=== PATIENT | male | born 1950 | race Two or more races ===

== ENCOUNTER → 2017-04-24 | Outpatient (CLI) | payer BC ==
--- NOTE | 2017-05-13 23:41 | ECWPNPC ---
PATIENT NAME: YOLANDA MONSIVAIS : 1950 GENDER: MALE VISIT DATE: 04/24/2017 DISCHARGE DATE: 04/24/17 1444 VISIT LOCKED DATE TIME: PHYSICIAN: OSIEL GONZALEZ RESOURCE: OSIEL GONZALEZ REASON FOR APPOINTMENT 1. RIGHT KNEE HISTORY OF PRESENT ILLNESS FALL RISK SCREENING: SCREENING :NO FALLS IN THE PAST YEAR PAIN SCREENING: PATIENT HAS A COMPLAINT OF ACUTE OR CHRONIC PAIN :YES TODAY'S VISIT: NOTES: REFERRED BY KARINE MARAVILLA NP AT [facility] FOR FURTHER EVAL AND TREATMENT FOR RIGHT KNEE PAIN. HAS HAD YEARS OF RIGHT KNEE PAIN. SAW DR MIRANDA AND SOS FOR A SECOND OPINION. HAS HAD NO SURGICAL INTERVENTION TO THE KNEE. NOTES PAIN US PRESENT WHEN STANDING AND WALKING AND RELIEVED BY SITTING DOWN. HE HAS HAD INJECTIONS TO THE RIGHT KNEE, TYPE UNKNOWN. REPORTS SOME CONTINUED DISCOMFORT BUT HAS SEEN SOME IMPROVEMENT IN KNEE PAIN. HAS HAD NO REPORTED PHYSICAL THERAPY TO KNEES. RATES PAIN TODAY 5/10 OVER THE RIGHT PATELLA. PAIN IS AGGRAVATED BY STANDING AND WALKING. NOTES SOME SWELLING AND HEAT AT THE KNEE AREA. . CURRENT MEDICATIONS TAKING OMEPRAZOLE 20 MG CAPSULE DELAYED RELEASE 1 CAPSULE ORALLY ONCE A DAY TAKING MAG64 535 (64 MG) MG TABLET EXTENDED RELEASE 1 TABLET ORALLY TWICE A DAY TAKING LISINOPRIL-HYDROCHLOROTHIAZIDE 20-12.5 MG TABLET 1 TABLET ORALLY ONCE A DAY TAKING AMLODIPINE BESYLATE 5 MG TABLET 1 TABLET ORALLY ONCE A DAY TAKING CALCIPOTRIENE-BETAMETH DIPROP 0.005-0.064 % OINTMENT 1 APPLICATION TO AFFECTED AREA EXTERNALLY ONCE A DAY NOT-TAKING TRAMADOL HCL 50 MG TABLET 1 TABLET NEEDED ORALLY EVERY 6 HRS, NOTES: DIDN'T WORK MEDICATION LIST REVIEWED AND RECONCILED WITH THE PATIENT PAST MEDICAL HISTORY HTN ALLERGIES N.K.D.A. SURGICAL HISTORY CHOLECYSTECTOMY COLONOSCOPY, EGD 2011 FAMILY HISTORY FATHER: 57 YRS, DIAGNOSED WITH CANCER MOTHER: 71 YRS, DIAGNOSED WITH CANCER 1 SON(S) , 1 DAUGHTER(S) - HEALTHY. SOCIAL HISTORY GENERAL: TOBACCO USE ARE YOU A:NONSMOKER ALCOHOL SCREENING POINTS9 INTERPRETATIONPOSITIVE RECREATIONAL DRUG USE DRUG USE?NO CAFFEINE CAFFEINE USE?NO OCCUPATION: [employer], [employer] AND [employer]. DIET: REGULAR. EXERCISE: NO REGULAR EXERCISE. MARITAL STATUS: . OTHERS AT HOME: NONE. PETS: 1 CAT. SCIENTOLOGIST [id number] NONE LANGUAGE LANGUAGES SPOKEN:SIERRA LEONEAN EDUCATION LEVEL OF EDUCATION:NOT FINISHED COLLEGE LEARNING BARRIERS / SPECIAL NEEDS BARRIERS TO LEARNING?NO HEARING IMPAIRED?NO VISION IMPAIRED?YES :CORRECTIVE LENSES COGNITIVELY IMPAIRED?NO READINESS TO LEARN?YES LEARNING PREFERENCES?YES :TAPES/VIDEOS, DEMONSTRATION/VERBAL INSTRUCTION LEARNING CAPABILITIES PRESENT?YES EMOTIONAL BARRIERS?NO SPECIAL DEVICES?NO MOLD MOVER NEEDED?NO PAIN CLINIC PFS, CLERGY, PUBLIC HEALTH REFERRALS PFS REFERRAL NEEDED?NO CLERGY REFERRAL NEEDED?NO PUBLIC HEALTH REFERRAL NEEDED?NO ADVANCE DIRECTIVES HEALTH CARE PROXY?NO WOULD YOU LIKE MORE INFORMATION?NO DO YOU HAVE A DNR?NO WOULD YOU LIKE MORE INFORMATION?NO LIVING WILL?NO WOULD YOU LIKE MORE INFORMATION?NO POWER OF BEAD FORMING MACHINE SET UP OPERATOR?NO WOULD YOU LIKE MORE INFORMATION?NO SOCIAL HISTORY PATIENTDENIES RECREATIONAL DRUG USE NO DOMESTIC VIOLENCE . PLAN CARE FOR THE PAIN CENTER REVIEWED WITH PATIENT AND HE VERBALIZED UNDERSTANDING. AD. HOSPITALIZATION/MAJOR DIAGNOSTIC PROCEDURE DENIES PAST HOSPITALIZATION REVIEW OF SYSTEMS CONSTITUTIONAL: ANY CHANGE IN YOUR MEDICAL CONDITION? NO . CHILLS NO . FEVER NO . INFECTION: DO YOU HAVE NEW INFECTIONS? NO . DO YOU HAVE HISTORY OF MRSA? NO . MUSCULOSKELETAL: ANY NEW PATTERNS OF PAIN OR NUMBNESS? NO . SYTEMIC LUPUS NO . GASTROENTEROLOGY: ANY NEW CHANGE IN BOWEL CONTROL? NO . BARRETTS ESOPHAGUS NO . CIRRHOSIS NO . HEPATITIS NO . LIVER FAILURE NO . ACID REFLUX YES . UNEXPLAINED WEIGHT LOSS NO . GENITOURINARY: ANY NEW CHANGE IN BLADDER CONTROL? NO . IS THERE A CHANCE YOU COULD BE ? NO . HEMATOLOGY/LYMPH: DO YOU TAKE ANY BLOOD THINNERS? (FOR EXAMPLE- COUMADIN, PLAVIX, AGGRENOX, PLATEL, PRADAXA, OR XARELTO) NO . WHEN WAS YOUR LAST DOSE? DATE: TIME: . LOW PLATELET COUNT NO . SICKLE CELL DISEASE NO . VON WILLIEBRANDS NO . FACTOR V LEIDEN NO . THALLASEMIA NO . ANEMIA NO . EASY BRUISING NO . NEUROLOGY: HAVE YOU FALLEN IN THE PAST 6 MONTHS? NO . ANY NEW EXTREMITY NUMBNESS OR WEAKNESS? NO . HEAD INJURY NO . DEMENTIA NO . CEREBRAL PALSY NO . MULTIPLE SCLEROSIS NO . DIZZINESS NO . HEADACHE NO . STROKES NO . VERTIGO NO . CARDIOLOGY: DO YOU HAVE A PACEMAKER OR DEFIBRILLATOR? NO . ANGINA NO . HEART ATTACK NO . HEART SURGERY NO . CONGESTIVE HEART FAILURE/FLUID OVERLOAD NO . CHEST PAIN NO - HAD WORK UP FOR CHEST PAIN - FOUND TO BE GI RELATED . HIGH BLOOD PRESSURE ON MEDICATION(S) . IRREGULAR HEART BEAT NO . RESPIRATORY: HAVE YOU BEEN SICK IN THE PAST WEEK? NO . FEVER NO . FLU LIKE SYMPTOMS? NO . CPAP NO . BYPAP NO . ASTHMA NO . EMPHYSEMA NO . CHRONIC LUNG DISEASES NO . SHORTNESS OF BREATH ON EXERTION NO . COUGH NO . SNORING YES, NEVER TESTED FOR ADRIAN . INTEGUMENTARY: DO YOU HAVE ANY RASHES OR OPEN SORES? NO . ALLERGIC/IMMUNO: ARE YOU ALLERGIC TO SHELLFISH OR IV DYE? NO . ANY NEW ALLERGIES? NO . PSYCHIATRIC: DO YOU HAVE THOUGHTS OF HURTING YOURSELF OR SOMEONE ELSE? NO . ARE YOU ABUSED, NEGLECTED, OR IN AN UNSAFE ENVIRONMENT? NO . ENDOCRINOLOGY: ARE YOU DIABETIC? NO . THYROID DISORDER NO . OTHER: DO YOU NEED ANY PRESCRIPTIONS? NO . IF YES, PLEASE LIST: ____ . ANY NEW PROBLEMS WITH YOUR MEDICATIONS? NO . WHEN DID YOU LAST EAT? ____ . WHEN DID YOU LAST DRINK? ____ . WHAT DID YOU LAST DRINK? ____ . NAME OF PERSON DRIVING YOU HOME? ____ . DO YOU HAVE ANY OTHER QUESTIONS OR CONCERNS YES, PAIN RELIEF . PSYCHOLOGY: BECKS DEPRESSION INVENTORY 0/63 DENIES SUICIDAL OR HOMICIDAL IDEATION . REVIEWED BY: PROVIDER: OSIEL FONSECA . VITAL SIGNS WT 211.6 LBS, HT 70", BMI 30.36 INDEX, BP 147/87 MM HG, HR 62 /MIN, RR 16 /MIN, TEMP 98.2 F, OXYGEN SAT % 98%, NA INITIALS TL 1333, REVIEWED BY: AD. EXAMINATION GENERAL EXAMINATION: PSYCHALERT , ORIENTED X 3 , APPROPRIATE MOOD AND AFFECT . HEENT:NORMOCEPHALIC, NO LYMPHADENOPATHY, NO THYROMEGLY. LUNGS:CLEAR TO AUSCULTATION BILATERALLY, NO WHEEZES, RALES, RHONCHI. HEART:HEART RATE REGULAR, NORMAL S1S2, NO MURMURS, CLICK OR RUBS. MUSCULOSKELETAL:MUSCLE STRENGTH TESTING 5/5 BILATERAL UPPER/LOWER EXTREMITIES. POSTURE UPRIGHT. GAIT ANTALGIC WITH RIGHT LEG LIMP NOTED. MINIMAL TENDERNESS WITH PALPATION OVER LUMBAR SPINOUS PROCESSES AND SACRALILIAC JOINTS. ABLE TO FLEX AND EXTEND AT ANKLE WITHOUT DIFFICULTY. POINT TENDERNESS OVER RIGHT TROCANTER. POSITIVE LAYA SIGN.. JOINTS:RIGHT , KNEE TENDER TO TOCH OVER PATELLA AND IN POPLITEAL SPACE. NO MASSES APPRECIATED. CREPITUS WITH EXTENSION AT KNEE. . DIAGNOSTIC TESTS REVIEWEDMRI OF RIGHT KNEE COMPLETED 02/16/17 REVIEWED.. ASSESSMENTS RIGHT ANTERIOR KNEE PAIN - M25.561 (PRIMARY) HIP PAIN, RIGHT - M25.551 TREATMENT RIGHT ANTERIOR KNEE PAIN NOTES: ICE TO KNEE AND HIP AREA. PHYSICAL THERAPY IN FUTURE IF NEEDED.FOLLOW UP WITH ORTHOPEDICS IN [place] NEEDED. PROCEDURE CODES FA211 ESTABILISHED PATIENT [facility] CHARGE DISPOSITION & COMMUNICATION FOLLOW UP CALL IF APPOINTMENT NEEDED. ELECTRONICALLY SIGNED BY JAYSON TOMAS ON 05/13/2017 AT 01:52 PM EDT DISCLAIMER : THIS IS A VISIT SUMMARY EXTRACTED FROM THE [employer] CHART. IT IS NOT A COPY OF THE [employer] PROGRESS NOTE. SPRING
== END ==
LOC: M PAIN 13:20
PROVIDERS: ATTEND Nurse Practitioner Family
DX: G89.29 Other chronic pain (principal); M25.561 Pain in right knee; M25.551 Pain in right hip; I10 Essential (primary) hypertension; K21.9 Gastro-esophageal reflux disease without esophagitis; Z79.899 Other long term (current) drug therapy

== ENCOUNTER 2017-07-18 21:27 | Observation (INO) | payer BC ==
[~2017-07-18] VITALS: Ht 185.4 cm; Wt 95.4 kg
[~2017-07-18 21:27] MED LIST: TAMSULOSIN 0.4 MG CAP PO SCH
[2017-07-18] MEDS ORDERED: NS 1,000 ML IV ONE (22:45)
[2017-07-18] MEDS ORDERED: ONDANSETRON 4MG/2ML VIAL (J2405) IV ONE (22:45)
[2017-07-18 22:47] LABS: BASO # 0.1 K/mm3 (0.0-0.2); BASO % 0.4 % (0.0-1.0); EOS # 0.2 K/mm3 (0.0-0.50); EOS % 0.9 % (0.0-3.0); LARGE UNSTAINED CELL # 0.1 K/mm3 (0.0-0.4); LARGE UNSTAINED CELL % 0.7 % (0.0-4.0); LYMPH # 1.2 K/mm3 (1.5-4.5); MEAN CORPUSCULAR HEMOGLOBIN 32.1 pg (27.0-33.0); MEAN CORPUSCULAR HGB CONC 34.6 g/dl (32.0-36.5); MEAN CORPUSCULAR VOLUME 92.9 fl (80.0-96.0); MONO % 5.5 % (0.0-5.0); NEUTROPHILS # 15.3 K/mm3 (1.8-7.7); NEUTROPHILS % 86.6 % (36.0-66.0); PLATELET COUNT, AUTOMATED 296 k/mm3 (150-450); RED CELL DISTRIBUTION WIDTH 12.7 % (11.5-14.5); WHITE BLOOD COUNT 17.7 K/mm3 (4.0-10.0)
[2017-07-18] MEDS: MORPHINE 4 MG/ML 1ML SYRINGE IV PRN ×2 (22:50→23:12)
[2017-07-18 23:02] LABS: ALBUMIN 4.2 GM/DL (3.2-5.2); ALKALINE PHOSPHATASE 63 U/L (45-117); ALT/SGPT 23 U/L (12-78); ANION GAP 11 MEQ/L (8-16); AST/SGOT 13 U/L (15-37); BILIRUBIN,DIRECT 0.1 MG/DL (0.0-0.2); BILIRUBIN,TOTAL 0.6 MG/DL (0.2-1.0); BLOOD UREA NITROGEN 15 MG/DL (7-18); CALCIUM LEVEL 8.7 MG/DL (8.8-10.2); CARBON DIOXIDE LEVEL 23 MEQ/L (21-32); CHLORIDE LEVEL 103 MEQ/L (98-107); CREATININE FOR GFR 1.29 MG/DL (0.70-1.30); GLOMERULAR FILTRATION RATE 59.1 (>49); GLUCOSE, FASTING 110 MG/DL (80-110); POTASSIUM SERUM 3.6 MEQ/L (3.5-5.1); SODIUM LEVEL 137 MEQ/L (136-145); TOTAL PROTEIN 7.7 GM/DL (6.4-8.2)
[2017-07-18] MEDS ORDERED: KETOROLAC 30 MG/ML VIAL (J1885) IV ONE (23:45)
[2017-07-19] VITALS (7 sets, daily range): BP systolic 142–180; BP diastolic 72–87
--- NOTE | 2017-07-19 | REPUSA ---
CT of the abdomen and pelvis without contrast Clinical statement: Pain. Technique: Multiple axial CT images were obtained from the base of the lungs to the floor of the pelv is utilizing 5 mm axial slices without administration of contrast. Coronal and sagittal reconstructio ns were also obtained. Comparison: 05/03/2012. Findings: Chest: The visualized lung bases are clear. Abdomen: The kidneys are normal in size bilaterally. There is moderately severe inflammation around t he left kidney. There is moderate left-sided hydronephrosis caused by a 6 mm obstructing stone in the proximal left ureter. The right renal collecting system is unremarkable. There is a low attenuation lesion in the left adrenal gland, measuring 2.1 x 1.7 cm. The liver, spleen, pancreas, and right adre nal gland are unremarkable. The aorta demonstrates normal caliber and contour. There is no abdominal lymphadenopathy or ascites. Pelvis: The bowel is unremarkable, with no obstructive or inflammatory changes. The appendix is rizwan l. The urinary bladder is within normal limits. There is no pelvic lymphadenopathy or ascites. The ot her pelvic structures appear unremarkable. Bones: There are no suspicious osseous abnormalities seen. Multilevel degenerative disc disease is no rishi, most severe at L2/L3 and L4/L5. Small disc osteophyte complexes are seen at these levels. Bilate ral osteoarthritis of the hip joints is noted, worse on the right than the left. Impression: 1. Moderately severe left-sided hydronephrosis caused by 6 mm obstructing stone in the proximal left ureter. Surrounding inflammation is noted, which could represent pyelonephritis in the appropriate cl inical setting. Follow-up is suggested as clinically indicated. 2. Stable benign left adrenal adenoma. 3. No obstructive or inflammatory bowel changes. 4. Moderate spondylosis of multilevel degenerative disc disease of the lumbar spine. 5. Moderately severe osteoarthritis of the hip joints bilaterally.
[2017-07-19] MEDS ORDERED: TAMSULOSIN 0.4 MG CAP PO ONE (00:15)
[2017-07-19] MEDS ORDERED: CIPROFLOXACIN 400 MG in APPROPRIATE DILUENT 1 EA IV ONE (00:15)
[2017-07-19] MEDS ORDERED: CALC0.02 EXT (00:50)
[2017-07-19] MEDS ORDERED: LISI20TA PO (00:50)
[2017-07-19] MEDS ORDERED: AMLO5TAB2 PO (00:50)
[2017-07-19] MEDS ORDERED: OMEP20CA3 PO (00:50)
[2017-07-19] MEDS ORDERED: ACETAMINOPHEN TAB 650MG DOSE (2X325MG) PO PRN (01:00)
[2017-07-19] MEDS ORDERED: CIPROFLOXACIN 400 MG in APPROPRIATE DILUENT 1 EA IV SCH ×2 (01:00→13:00)
[2017-07-19] MEDS ORDERED: MORPHINE 2 MG/ML 1ML SYRINGE IV PRN ×2 (01:00→20:00)
[2017-07-19] MEDS ORDERED: PERCOCET 5MG/325MG TAB PO PRN ×2 (01:00→20:00)
[2017-07-19] MEDS ORDERED: ONDANSETRON 4MG/2ML VIAL (J2405) IV PRN (01:00)
[2017-07-19] MEDS ORDERED: KETOROLAC TROMETHAMINE 10 MG TAB PO PRN (01:00)
[2017-07-19] MEDS ORDERED: OMEPRAZOLE 20 MG CAP PO PRN (01:00)
[2017-07-19 01:29] LABS: URIC ACID 6.1 MG/DL (3.5-7.2)
[2017-07-19] MEDS: NS 1,000 ML IV SCH ×2 (02:38→12:37)
[2017-07-19] MEDS: PERCOCET 5MG/325MG TAB PO PRN ×3 (05:15→16:52)
[2017-07-19] MEDS ORDERED: LevoFLOXacin IV 500 MG in APPROPRIATE DILUENT 1 EA IV SCH (06:00)
[2017-07-19 06:39] LABS: MEAN CORPUSCULAR HEMOGLOBIN 32.1 pg (27.0-33.0); MEAN CORPUSCULAR HGB CONC 35.6 g/dl (32.0-36.5); MEAN CORPUSCULAR VOLUME 90.3 fl (80.0-96.0); RED CELL DISTRIBUTION WIDTH 12.8 % (11.5-14.5); WHITE BLOOD COUNT 11.6 K/mm3 (4.0-10.0)
[2017-07-19 06:44] LABS: INR 0.93
[2017-07-19 06:57] LABS: CALCIUM LEVEL 8.1 MG/DL (8.8-10.2); CREATININE FOR GFR 1.53 MG/DL (0.70-1.30); GLOMERULAR FILTRATION RATE 48.6 (>49); POTASSIUM SERUM 3.8 MEQ/L (3.5-5.1)
--- NOTE | 2017-07-19 07:24 | ECGEPIP ---
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
[2017-07-19] MEDS ORDERED: hydroCHLOROthiazide 12.5 MG CAPSULE PO SCH (09:00)
[2017-07-19] MEDS: amLODIPine 5 MG TAB PO SCH (09:26)
[2017-07-19] MEDS: ENOXAPARIN 40 MG/0.4 ML SYRINGE (J1650) SC SCH (09:26)
[2017-07-19] MEDS ORDERED: ceFAZolin 1GM INJ (J0690) As Ordered ONE (17:19)
[2017-07-19] MEDS ORDERED: CONRAY-60 60% 50ML VIAL (Q9961) As Ordered ONE (17:23)
[2017-07-19] MEDS ORDERED: MIDAZOLAM INJ 2 MG/2 ML VIAL (J2250) As Ordered ONE (17:41)
[2017-07-19] MEDS ORDERED: fentaNYL 100 MCG/2 ML INJECTION (J3010) As Ordered ONE (17:41)
[2017-07-19] MEDS ORDERED: PROPOFOL 200 MG/20 ML VIAL As Ordered ONE (17:50)
[2017-07-19] MEDS ORDERED: ceFAZolin 2 GM/D5W 50 ML IV BAG (J0690) As Ordered ONE (17:59)
[2017-07-19] MEDS ORDERED: LIDOCAINE 2% 5ML JELLY UROJET As Ordered ONE (18:02)
[2017-07-19] MEDS ORDERED: LIDOCAINE 2% INJ 100 MG/5 ML SDV (FOR ANES.) As Ordered ONE (18:23)
--- NOTE | 2017-07-19 18:41 | REP ---
Retrograde ureterogram: Two views. History: Left kidney stone. 11 seconds of fluoroscopy time is reported. Findings: A sequence of two last image hold fluoro spot radiographs of the left abdomen document double pigtail ureteral stent placement and some intrarenal collecting system contrast. Signed by Ke Espinoza MD 07/20/2017 08:34 A
[2017-07-19] MEDS: ONDANSETRON 4MG/2ML VIAL (J2405) IV PRN (20:06)
[2017-07-19] MEDS ORDERED: TAMSULOSIN 0.4 MG CAP PO SCH (21:00)
--- NOTE | 2017-07-19 21:44 | HPE ---
DATE OF ADMISSION: 07/18/2017 PRIMARY CARE PROVIDER: Anai Jurado. CHIEF COMPLAINT: Left-sided flank pain. HISTORY OF PRESENT ILLNESS: The patient is a 67-year-old man who tells me he has a history of left-sided flank pain related to a kidney stone that he had many years ago. He tells that he began having pain early in the morning of 07/18, which progressively worsened. He initially thought it was an upset stomach or possibly even food poisoning, but when it became more intense and more severe likened to how he had stone in the past, and as such he presented to the emergency room. He denies any fever, chills, chest pain, nausea, vomiting or associated diarrhea, changes in his appetite, diet or medications. He states at the present time he is comfortable after receiving pain medication in the emergency room. He tells me that he feels normal. Of note, he tells me that he is due to have hip replacement surgery completed on 08/06 in [place]. PAST MEDICAL HISTORY: 1. Osteoarthritis. 2. Hypertension. 3. Hiatal hernia. 4. Esophageal polyps. 5. Gastroesophageal reflux disease. ALLERGIES: No known drug allergies. PAST SURGICAL HISTORY: 1. Cholecystectomy. 2. Esophagogastroduodenoscopy (EGD) and colonoscopy in 2013. SOCIAL HISTORY: No tobacco use. He drinks 2-3 beers per day. 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 HOME MEDICATIONS: - amlodipine 5 mg daily - omeprazole 20 mg at bedtime as needed for reflux - lisinopril hydrochlorothiazide combination 20/12.5 FAMILY HISTORY: Noncontributory. REVIEW OF SYSTEMS: 10-point review of systems completed, negative other than history of present illness (HPI). OBJECTIVE: VITAL SIGNS: Temperature 98.2, pulse 60, respiratory rate 16, blood pressure 151/83, oxygen saturation 97% on room air. GENERAL: He is a very pleasant man lying on a stretcher. He does not appear to be in any acute distress whatsoever. HEENT: Cranial nerves II through XII grossly intact. He has moist mucous membranes. No elevation of central venous pressure (CVP). CARDIOVASCULAR: S1, S2. Regular. RESPIRATORY: Clear. ABDOMEN: Bowel sounds present. Abdomen is soft. It is nontender to palpation. He did not have any costovertebral angle tenderness on my exam. EXTREMITIES: No clubbing, cyanosis or edema. LABORATORY DATA: WBC 17.7, hemoglobin 16.1, platelet count 296. Chemistry panel: Sodium 137, potassium 3.6, chloride 103, bicarbonate 23, BUN 15 , creatinine 1.2. Cardiac enzymes are negative. Lipase within normal limits. Urinalysis (UA) was positive for 3+ blood and 28 RBCs, as well as trace ketones. A urine culture is pending. IMAGING: The patient did have a CT scan of the abdomen and pelvis which revealed moderate to severe left-sided hydronephrosis caused by a 6 mm obstructing stone in the proximal left ureter; surrounding inflammation is noted which could represent pyelonephritis. Benign left adrenal adenoma. No obstructive or inflammatory bowel changes. Moderate spondylosis, degenerative disc disease of the lumbar spine, and osteoarthritis throughout the hip joints bilaterally. ASSESSMENT AND PLAN: This is a 67-year-old man with hydronephrosis secondary to obstructing nephrolithiasis. 1. Hydronephrosis secondary to obstructing nephrolithiasis. There was some concern that this could be complicated by infection, given some leukocytosis. He is started on empiric antibiotics and I will continue these for now. Should he developed any further evidence of sepsis, would consider consulting urology for ureteral stent placement; however, at this time I suspect he will do well with observation. We will continue with non-steroidal anti-inflammatory drugs (NSAIDs) as needed, Flomax, straining his urine, intravenous (IV) fluids in hopes that he is able to pass the stone. He will be kept comfortable. I will check pathology of stone would be beneficial for determining etiology 2. Hypertension. Will continue with hydrochlorothiazide and his calcium channel jelly with holding parameters, and we will hold his lisinopril for the moment. 3. Gastroesophageal reflux disease. Continue with his omeprazole. 4. Alcohol abuse. He drinks 2-3 beers per day. Would monitor closely for signs or symptoms of delirium tremens. He seems fairly well nourished. Should he exhibit any signs or symptoms of withdrawal, would quickly start thiamine, folate and B12. He does not appear to have any macrocytosis. He does not appear to require to have any as needed benzodiazepines at this time. 5. Osteoarthritis. Continue with NSAID therapy. He is due to have hip replacement surgery early next month in [place]. 6. Deep venous thrombosis (DVT) prophylaxis on Lovenox. DISPOSITION: The patient is admitted to observation status to Dr. Herrera's service on the medical/surgical floor, who will continue following the patient in the morning. SPRING
[2017-07-19] MEDS: CIPROFLOXACIN 500 MG TAB PO SCH (22:17)
[2017-07-19] MEDS: PANTOPRAZOLE 40MG INJ (PROTONIX) (C9113) IV SCH (22:17)
[2017-07-19] MEDS: KCL 20MEQ IN D5/0.45NS 1000ML 1,000 ML IV SCH (22:18)
[2017-07-20 00:30] VITALS: BP 167/70
[2017-07-20] MEDS ORDERED: PERCOCET 5MG/325MG TAB PO PRN (01:00)
[2017-07-20] MEDS: PERCOCET 5MG/325MG TAB PO PRN ×2 (01:12→06:06)
[2017-07-20 04:00] VITALS: BP 143/64
[2017-07-20] MEDS ORDERED: ceFAZolin SOD 1 GM in D5W MINI-BAG PLUS 50 ML IV SCH (06:00)
[2017-07-20] MEDS: CIPROFLOXACIN 500 MG TAB PO SCH (06:06)
[2017-07-20] MEDS: KCL 20MEQ IN D5/0.45NS 1000ML 1,000 ML IV SCH (06:06)
[2017-07-20 06:55] LABS: MEAN CORPUSCULAR HEMOGLOBIN 31.8 pg (27.0-33.0); MEAN CORPUSCULAR HGB CONC 34.9 g/dl (32.0-36.5); MEAN CORPUSCULAR VOLUME 91.1 fl (80.0-96.0); RED CELL DISTRIBUTION WIDTH 12.3 % (11.5-14.5); WHITE BLOOD COUNT 7.8 K/mm3 (4.0-10.0)
[2017-07-20 07:14] LABS: ANION GAP 6 MEQ/L (8-16); BLOOD UREA NITROGEN 12 MG/DL (7-18); CALCIUM LEVEL 8.2 MG/DL (8.8-10.2); CARBON DIOXIDE LEVEL 27 MEQ/L (21-32); CHLORIDE LEVEL 110 MEQ/L (98-107); GLOMERULAR FILTRATION RATE > 60.0 (>49); GLUCOSE, FASTING 134 MG/DL (80-110); POTASSIUM SERUM 3.5 MEQ/L (3.5-5.1); SODIUM LEVEL 143 MEQ/L (136-145)
[2017-07-20] MEDS ORDERED: PREVNAR 13 VACCINE SYRINGE (CPT CODE:90670) IM ONE (09:00)
[2017-07-20] MEDS: ONDANSETRON 4MG/2ML VIAL (J2405) IV PRN (09:25)
[2017-07-20] MEDS: ENOXAPARIN 40 MG/0.4 ML SYRINGE (J1650) SC SCH (11:27)
[2017-07-20 11:28] VITALS: BP 143/64
[2017-07-20] MEDS: amLODIPine 5 MG TAB PO SCH (11:28)
[2017-07-20] MEDS: PANTOPRAZOLE 40MG INJ (PROTONIX) (C9113) IV SCH (11:29)
[2017-07-20 14:00] VITALS: BP 161/80
[2017-07-20] MEDS ORDERED: CIPR-249 PO (15:35)
[2017-07-20] MEDS ORDERED: PERCOCET PO (15:35)
[2017-07-20] MEDS ORDERED: FLOM5CAP PO (15:35)
--- NOTE | 2017-07-20 15:49 | DS.PDOC ---
Discharge Summary General Date of Admission Jul 18, 2017 at 21:28 Date of Discharge 07/20/17 Specialist/Consultants Involve: LINDA STONE MD Discharge Summary PROCEDURES PERFORMED DURING STAY: Left sided cystoscopy and left double-J stent with retrograde pyelogram ADMITTING DIAGNOSES: 1. . Left-sided hydronephrosis 2/2 proximal left ureter obstructing stone DISCHARGE DIAGNOSES: 1. . Obstructive Uropathy, s/p Left sided cystoscopy and left double-J stent with retrograde pyelogram COMPLICATIONS/CHIEF COMPLAINT: Hydronephrosis Due To Obstruction Of Ureter. HISTORY OF PRESENT ILLNESS: . 67-year-old male with past medical history of osteoarthritis, hypertension, hiatal hernia, esophageal polyps, and GERD presented to the ER with a chief complaint of left-sided flank pain. The patient states that the pain has been present for about 24 hours. He likens it to a pain that he had several years ago which was related to a kidney stone. The patient notes that he felt some burning on urination in the left flank area as well as some hesitancy. He described the pain as 8 out of 10 in intensity and sharp in quality. He denied any associated fever, chills, chest pain, hypertension, nausea, vomiting or any diarrhea. In the ER, a CT scan of the abdomen/pelvis revealed moderately severe left- sided hydronephrosis caused by 6 mm obstructing stone in the proximal left ureter. The patient was admitted to the hospitalist service for further evaluation and management. During hospitalization, the patient was started on IV fluid hydration and IV ciprofloxacin. A consult was placed for urology, and the patient subsequently went for a left sided cystoscopy and left double-J stent with retrograde pyelogram. The patient's white blood cell count has normalized, and he has been afebrile here. He reports that his symptoms have improved and that his pain is much better controlled. He denies any acute complaints at this time and reports that he is eager to go home. The patient was seen by urology today and is to follow-up in 2 weeks for further management. I've advised the patient to follow- up with his primary care physician within one week. In addition the patient is to complete his course of antibiotics. He has been consulted to return to the ER for any acute emergency. DISCHARGE MEDICATIONS: Please see below. ALLERGIES: Please see below. PHYSICAL EXAMINATION ON DISCHARGE: VITAL SIGNS: Please see below. GENERAL: Awake, alert, oriented 3 HEENT: Normocephalic, atraumatic NECK: No JVD CARDIOVASCULAR EXAMINATION: Normal rate, normal S1, S2 RESPIRATORY EXAMINATION: Clear to auscultation bilaterally ABDOMINAL EXAMINATION: Soft, nontender, nondistended EXTREMITIES: No swelling or tenderness LABORATORY DATA: Please see below. IMAGING: CT of the abdomen and pelvis without contrast Clinical statement: Pain. Technique: Multiple axial CT images were obtained from the base of the lungs to the floor of the pelvis utilizing 5 mm axial slices without administration of contrast. Coronal and sagittal reconstructions were also obtained. Comparison: 05/03/2012. Findings: Chest: The visualized lung bases are clear. Abdomen: The kidneys are normal in size bilaterally. There is moderately severe inflammation around the left kidney. There is moderate left-sided hydronephrosis caused by a 6 mm obstructing stone in the proximal left ureter. The right renal collecting system is unremarkable. There is a low attenuation lesion in the left adrenal gland, measuring 2.1 x 1.7 cm. The liver, spleen, pancreas, and right adrenal gland are unremarkable. The aorta demonstrates normal caliber and contour. There is no abdominal lymphadenopathy or ascites. Pelvis: The bowel is unremarkable, with no obstructive or inflammatory changes. The appendix is normal. The urinary bladder is within normal limits. There is no pelvic lymphadenopathy or ascites. The other pelvic structures appear unremarkable. Bones: There are no suspicious osseous abnormalities seen. Multilevel degenerative disc disease is noted, most severe at L2/L3 and L4/L5. Small disc osteophyte complexes are seen at these levels. Bilateral osteoarthritis of the hip joints is noted, worse on the right than the left. Impression: 1. Moderately severe left-sided hydronephrosis caused by 6 mm obstructing stone in the proximal left ureter. Surrounding inflammation is noted, which could represent pyelonephritis in the appropriate clinical setting. Follow-up is suggested as clinically indicated. 2. Stable benign left adrenal adenoma. 3. No obstructive or inflammatory bowel changes. 4. Moderate spondylosis of multilevel degenerative disc disease of the lumbar spine. 5. Moderately severe osteoarthritis of the hip joints bilaterally. PROGNOSIS: Medically stable ACTIVITY: As tolerated. DIET: . 2 g low sodium diet DISCHARGE PLAN: DISPOSITION: . Home DISCHARGE INSTRUCTIONS: 1. . Follow-up with primary care physician within one week 2. . Follow-up with urology within 2 weeks 3. . Complete course of antibiotic ITEMS TO FOLLOWUP ON ON OUTPATIENT: 1. . Return to the ER for any acute emergencies DISCHARGE CONDITION: Stable. TIME SPENT ON DISCHARGE: Greater than 30 minutes. Vital Signs/I&Os Vital Signs Date Time Temp Pulse Resp B/P (MAP) Pulse Ox O2 Delivery O2 Flow Rate FiO2 07/20/17 14:00 98.6 71 20 161/80 (107) 95 07/20/17 08:12 Room Air I&O- Last 24 Hours up to 6 AM 07/20/17 06:00 Intake Total 770 ml Output Total 400 ml Balance 370 ml Laboratory Data Labs 24H Laboratory Tests 2 07/20/17 06:39: Anion Gap 6L, Glomerular Filtration Rate > 60.0, Blood Urea Nitrogen 12, Creatinine 1.20, Sodium Level 143, Potassium Level 3.5, Chloride Level 110H, Carbon Dioxide Level 27, Calcium Level 8.2L CBC/BMP Laboratory Tests 07/20/17 06:39 Red Blood Count 4.12 L, Mean Corpuscular Volume 91.1, Mean Corpuscular Hemoglobin 31.8, Mean Corpuscular Hemoglobin Concent 34.9, Red Cell Distribution Width 12.3, Calcium Level 8.2 L Microbiology Microbiology 07/18/17 Urine Culture - Final, Complete Discharge Medications Scheduled (Lisinopril/Hydrochlorothi 20-12.5 mg) 1 Tab Tab, 1 TAB PO DAILY, (Reported) Amlodipine Besylate (Amlodipine Besylate) 5 Mg Tab, 5 MG PO DAILY, (Reported) Ciprofloxacin HCl (Cipro) 500 Mg Tab, 500 MG PO BID@ Tamsulosin Hydrochloride (Flomax) 0.4 Mg Cap, 0.4 MG PO QHS Scheduled PRN (Calcipotriene/Betamethaso 0.005-0.064 %) 1 Oin Oin, 1 OIN EXT DAILY PRN for ITCHING/DRY SKIN, (Reported) Omeprazole (Omeprazole) 20 Mg Cap, 20 MG PO QHS PRN for ACID REFLUX, (Reported) Oxycodone/Acetaminophen (Percocet 5MG/325MG Tablet) 1 Tab Tab, 1 TAB PO Q4HP PRN for MILD/MODERATE PAIN (PS 1-7) Allergies Coded Allergies: No Known Allergies (Unverified , 07/18/17) EMMA ARREDONDO MD Jul 20, 2017 15:49
--- NOTE | 2017-07-20 18:49 | RO ---
DATE OF PROCEDURE: 07/18/2017 PREPROCEDURE DIAGNOSIS: Left hydronephrosis, left 8 mm proximal ureteral stone. POSTPROCEDURE DIAGNOSIS: Left hydronephrosis, left 8 mm proximal ureteral stone. PROCEDURE: Cystoscopy, plus left retrograde pyelogram, plus left double J stent placement, #6-Japanese [place]. FINDINGS: 8 mm left proximal ureteral stone plus hydronephrosis. SURGEON: Franky Sullivan MD GEOPHYSICAL COMPUTER: None. ANESTHESIA: General. COMPLICATIONS: None. ESTIMATED BLOOD LOSS: N/A. HISTORY OF THE PRESENT ILLNESS: A 67-year-old male patient who was admitted through the emergency department to the [facility] hospitalist service. The patient was admitted by Dr. Soto Herrera because of increased creatinine levels up to 1.5, left hydronephrosis, stranding around the kidney and a 8 mm stone in the left kidney. For this reason, the patient was admitted and treated with pain medication and with intravenous (IV) antibiotics. The patient persisted with having pain and for this reason, he was consented for a cystoscopy, plus left retrograde pyelogram, plus left double J stent placement. DESCRIPTION OF PROCEDURE: In a patient under general anesthesia in supine modified low lithotomy position, after prepping and draping the area of concern, which included the entire genitalia and abdomen, we started by introducing a cystoscope, 21-Japanese, in diameter with a 30-degree lens under videoendoscopic guidance. The fossa navicularis, penile urethra, bulbar urethra and membranous urethra were totally normal. The prostatic urethra had lateral lobes touching, a small middle lobe. Both ureteral orifices were seen. The bladder had no tumors. We then catheterized the left ureteral orifice with a #5-Japanese Pollack catheter and did a retrograde pyelogram. We could see hydronephrosis in the left kidney and a stone of about 8 mm in diameter in the proximal ureter. At that moment in time, we passed a guidewire up to the kidney, bypassing the stone, took out the Pollack catheter and loaded a double J stent, #6-Japanese [place] up to the kidney, draining the kidney completely. We then proceeded to empty the bladder and took the cystoscope out. PLAN: The patient will be admitted back to the service of Dr. Herrera. We will hydrate him, treat him with antibiotics. Once the pain is controlled and his creatinine level has improved, he will be discharged home and followup with us at [facility] for definite therapy of the left ureteral stone. At this moment in time, we will just drain the kidney as an emergency to improve his renal function and prevent any complicated infection at that level since he has severe stranding on CT scan.
[2017-09-05] MEDS ORDERED: MAGN64TASA PO (13:55)
[2017-09-05] MEDS ORDERED: INDO50CA PO (13:56)
[2017-09-05] MEDS ORDERED: MINO100C4 PO (13:57)
[2017-09-19] MEDS ORDERED: CIPR500T3 PO (17:35)
[2017-09-19] MEDS ORDERED: TYLE650T35 PO (17:35)
== END 2017-07-20 16:30 | disposition home or self-care (01) ==
LOC: M ED 21:27 → M ED INP 21:28 → M MS5PR 07-19 02:20
PROVIDERS: ADMIT Internal Medicine; ATTEND Internal Medicine
DX: N13.2 Hydronephrosis with renal and ureteral calculous obstruction (principal); I10 Essential (primary) hypertension; K44.9 Diaphragmatic hernia without obstruction or gangrene; K21.9 Gastro-esophageal reflux disease without esophagitis; Z79.899 Other long term (current) drug therapy; J38.1 Polyp of vocal cord and larynx
CPT/HCPCS: 36415; 52332; 74176; 74420; 80048; 80076; 81001; 82330; 82550; 82553; 83690; 84550; 85025; 85027; 85610; 87086; 90471; 90670; 93005; 93041; 96372; 96374; 96375; 96376; 99285; C1769; C2617; C9113; J0690; J0744; J1650; J1885; J2250; J2405; J3010; Q9961

== ENCOUNTER → 2017-08-03 | Outpatient (REF) | payer BC ==
[~2017-08-03] MED LIST changes: +AMLO5TAB2 PO; +CALC0.02 EXT; +CIPR-249 PO; +CIPR500T3 PO; +FLOM5CAP PO; +INDO50CA PO; +LISI20TA PO; +MAGN64TASA PO; +MINO100C4 PO; +OMEP20CA3 PO; +PERCOCET PO; -TAMSULOSIN 0.4 MG CAP PO SCH; +TYLE650T35 PO
== END ==
LOC: M SMT 08:30
PROVIDERS: ATTEND Nurse Practitioner Women's Health
DX: Z01.818 Encounter for other preprocedural examination (principal); N13.2 Hydronephrosis with renal and ureteral calculous obstruction

== ENCOUNTER → 2017-09-13 | Outpatient (CLI) | payer BC ==
[2017-09-13 14:00] LABS: MEAN CORPUSCULAR HEMOGLOBIN 30.8 pg (27.0-33.0); MEAN CORPUSCULAR HGB CONC 33.6 g/dl (32.0-36.5); MEAN CORPUSCULAR VOLUME 91.8 fl (80.0-96.0); PLATELET COUNT, AUTOMATED 310 10^3/uL (150-450); RED CELL DISTRIBUTION WIDTH 12.9 % (11.5-14.5); WHITE BLOOD COUNT 9.8 10^3/uL (4.0-10.0)
[2017-09-13 14:21] LABS: INR 0.89
[2017-09-13 14:56] LABS: ANION GAP 8 MEQ/L (8-16); BLOOD UREA NITROGEN 18 MG/DL (7-18); CALCIUM LEVEL 9.3 MG/DL (8.8-10.2); CARBON DIOXIDE LEVEL 27 MEQ/L (21-32); CHLORIDE LEVEL 104 MEQ/L (98-107); CREATININE FOR GFR 0.91 MG/DL (0.70-1.30); GLOMERULAR FILTRATION RATE > 60.0 (>49); GLUCOSE, FASTING 94 MG/DL (80-110); POTASSIUM SERUM 4.1 MEQ/L (3.5-5.1); SODIUM LEVEL 139 MEQ/L (136-145)
--- NOTE | 2017-09-14 02:17 | REP ---
Clinical: Preoperative assessment . Comparison: 10/16/2016 . Technique: PA and lateral. Findings: The mediastinum and cardiac silhouette are normal. Airway is patent and midline. The lung comer are clear and without acute consolidation, effusion, or pneumothorax. The skeletal structures are intact and normal. Impression: 1. No acute cardiopulmonary process. Signed by Bjorn Pino MD 09/14/2017 02:08 A
== END ==
LOC: M LAB 13:09
PROVIDERS: ATTEND Nurse Practitioner Women's Health
DX: Z01.818 Encounter for other preprocedural examination (principal)

== ENCOUNTER → 2018-05-22 | Outpatient (CLI) | payer BC | LOC: M CARPUL 10:56 | DX: R94.31 Abnormal electrocardiogram [ECG] [EKG] (principal) | CPT/HCPCS: 93005 ==

== ENCOUNTER → 2018-12-02 | Outpatient (CLI) | payer BC ==
[~2018-12-02] MED LIST changes: -AMLO5TAB2 PO; +AMLO5TAB6 PO; +FLOM0.4C39 PO; -FLOM5CAP PO
--- NOTE | 2018-12-03 02:31 | REP ---
Clinical: Preoperative assessment . Comparison: 09/13/2017 . Technique: PA and lateral. Findings: The mediastinum and cardiac silhouette are normal. The lung comer are clear and without acute consolidation, effusion, or pneumothorax. The skeletal structures are intact and normal. Impression: 1. No acute cardiopulmonary process. Electronically Signed by Bjorn Pino MD 12/03/2018 02:24 A
== END ==
LOC: M RAD 16:46
PROVIDERS: ATTEND Physician Assistant
DX: Z01.818 Encounter for other preprocedural examination (principal)

== ENCOUNTER 2024-07-03 09:30 | Emergency (ER) | payer OTHER ==
[~2024-07-03] VITALS: Ht 182.9 cm; Wt 92.3 kg
[~2024-07-03 09:30] MED LIST changes: +ACET650T61 PO; +AMLO1TAB24 PO; -AMLO5TAB6 PO; -CALC0.02 EXT; +CALC1OIN3 EXT; -INDO50CA PO; +INDO50CA91 PO; -LISI20TA PO; +LISI20TA35 PO; +OMEP1CAP73 PO; -OMEP20CA3 PO; -TYLE650T35 PO
[2024-07-03 11:58] LABS: BASO # 0.1 10^3/uL (0.0-0.2); BASO % 0.4 % (0.0-1.0); EOS # 0.1 10^3/uL (0.0-0.5); EOS % 0.3 % (0.0-3.0); HEMATOCRIT 41.7 % (42.0-52.0); HEMOGLOBIN 13.7 g/dl (13.5-17.5); LYMPH # 1.3 10^3/uL (1.5-5.0); LYMPH % 7.1 % (24.0-44.0); MEAN CORPUSCULAR HEMOGLOBIN 28.1 pg (27.0-33.0); MEAN CORPUSCULAR HGB CONC 32.9 g/dl (32.0-36.5); MEAN CORPUSCULAR VOLUME 85.6 fl (80.0-96.0); MONO # 1.3 10^3/uL (0.0-0.8); MONO % 6.7 % (2.0-8.0); NEUTROPHILS # 15.9 10^3/uL (1.5-8.5); NEUTROPHILS % 84.6 % (36.0-66.0); PLATELET COUNT, AUTOMATED 490 10^3/uL (150-450); RED BLOOD COUNT 4.87 10^6/uL (4.30-6.10); WHITE BLOOD COUNT 18.8 10^3/uL (4.0-10.0)
[2024-07-03 12:04] LABS: ERYTHROCYTE SEDIMENTATION RATE 75 mm/hr (0-20)
[2024-07-03 12:26] LABS: BLOOD UREA NITROGEN 15 MG/DL (9-23); CALCIUM LEVEL 9.1 MG/DL (8.3-10.6); CARBON DIOXIDE LEVEL 27 MMOL/L (20-31); CHLORIDE LEVEL 105 MMOL/L (98-107); CREATININE FOR GFR 0.82 MG/DL (0.70-1.30); GLOMERULAR FILTRATION RATE > 60.0 (>42); GLUCOSE, FASTING 140 MG/DL (74-106); POTASSIUM SERUM 3.8 MMOL/L (3.5-5.1); SODIUM LEVEL 138 MMOL/L (136-145)
[2024-07-03] MEDS ORDERED: CEPH500C PO (12:48)
[2024-07-03 12:59] VITALS: BP 133/68; TEMP 98.4; O2SAT 97
== END 2024-07-03 13:00 | disposition home or self-care (01) ==
LOC: M ED 09:30
DX: L03.116 Cellulitis of left lower limb (principal); I10 Essential (primary) hypertension; F41.9 Anxiety disorder, unspecified; F32.A Depression, unspecified; Z79.2 Long term (current) use of antibiotics; Z79.811 Long term (current) use of aromatase inhibitors; Z79.899 Other long term (current) drug therapy

== ENCOUNTER 2024-08-16 10:55 | Inpatient (IN) | payer OTHER ==
[~2024-08-16] VITALS: Ht 182.9 cm; Wt 93.5 kg
[~2024-08-16 10:55] MED LIST changes: +CEPH500C PO
[2024-08-16 12:00] LABS: BASO # 0.1 10^3/uL (0.0-0.2); BASO % 0.2 % (0.0-1.0); EOS % 0.1 % (0.0-3.0); HEMATOCRIT 40.7 % (42.0-52.0); HEMOGLOBIN 13.6 g/dl (13.5-17.5); LYMPH # 0.7 10^3/uL (1.5-5.0); LYMPH % 2.5 % (24.0-44.0); MEAN CORPUSCULAR HEMOGLOBIN 27.8 pg (27.0-33.0); MEAN CORPUSCULAR HGB CONC 33.4 g/dl (32.0-36.5); MEAN CORPUSCULAR VOLUME 83.2 fl (80.0-96.0); MONO # 0.9 10^3/uL (0.0-0.8); MONO % 3.1 % (2.0-8.0); NEUTROPHILS # 26.7 10^3/uL (1.5-8.5); NEUTROPHILS % 92.7 % (36.0-66.0); PLATELET COUNT, AUTOMATED 530 10^3/uL (150-450); RED BLOOD COUNT 4.89 10^6/uL (4.30-6.10); WHITE BLOOD COUNT 28.7 10^3/uL (4.0-10.0)
[2024-08-16 12:11] LABS: ERYTHROCYTE SEDIMENTATION RATE 80 mm/hr (0-20)
[2024-08-16] MEDS ORDERED: VANCOMYCIN HCL 2,000 MG in D5W 500 ML IV ONE (14:20)
[2024-08-16] MEDS: ACETAMINOPHEN *IV* 1,000 MG in IV 1 EA IV ONE (14:24)
[2024-08-16] MEDS: NS 2,730 ML in IV 1 EA IV ONE (14:29)
[2024-08-16] MEDS: VANCOMYCIN HCL 1,000 MG, VIAL MATE ADAPTER 1 EACH in D5W 250 ML IV ONE ×2 (14:42→15:52)
[2024-08-16] MEDS ORDERED: LISI40TA4 PO (16:40)
[2024-08-16] MEDS ORDERED: POTA1TAB24 PO (16:40)
[2024-08-16] MEDS ORDERED: ACET-907 PO (16:40)
[2024-08-16] MEDS ORDERED: VENL150C43 PO (16:40)
[2024-08-16] MEDS ORDERED: ATOR80TA59 PO (16:40)
[2024-08-16] MEDS ORDERED: CLON0.2T PO (16:40)
[2024-08-16 17:26] LABS: ALKALINE PHOSPHATASE 125 U/L (46-116); ALT/SGPT 42 U/L (7.0-40); AST/SGOT 41 U/L (<34); BILIRUBIN,TOTAL 0.8 MG/DL (0.3-1.2); BLOOD UREA NITROGEN 8 MG/DL (9-23); CALCIUM LEVEL 8.5 MG/DL (8.3-10.6); CARBON DIOXIDE LEVEL 22 MMOL/L (20-31); CHLORIDE LEVEL 111 MMOL/L (98-107); CREATININE FOR GFR 0.65 MG/DL (0.70-1.30); GLOMERULAR FILTRATION RATE > 60.0 (>42); GLUCOSE, FASTING 181 MG/DL (74-106); MAGNESIUM LEVEL 1.6 MG/DL (1.8-2.4); POTASSIUM SERUM 4.1 MMOL/L (3.5-5.1); SODIUM LEVEL 139 MMOL/L (136-145); TOTAL PROTEIN 6.3 G/DL (5.7-8.2)
[2024-08-16] MEDS: hydroCHLOROthiazide 12.5 MG CAPSULE PO ONE (17:45)
[2024-08-16] MEDS ORDERED: HOME MED LIST COMPLETE! XX SCH (17:45)
[2024-08-16 18:15] VITALS: BP 144/83; TEMP 97.9; O2SAT 98
[2024-08-16] MEDS ORDERED: ACETAMINOPHEN TAB 650MG DOSE (2X325MG) PO PRN (19:00)
[2024-08-16 20:07] VITALS: BP 135/76; TEMP 97.7
[2024-08-16] MEDS: ATORVASTATIN 20 MG TAB PO SCH (20:56)
[2024-08-16] MEDS: cloNIDine 0.2 MG TAB PO SCH (20:56)
[2024-08-16] MEDS: VANICREAM MOISTURIZING SKIN CREAM 113GM TUBE TOP SCH (21:00)
[2024-08-16] MEDS: ANUSOL HC CREAM 30GM TOP SCH (21:00)
[2024-08-16 22:08] VITALS: BP 135/76; TEMP 97.7; O2SAT 98
[2024-08-17 00:08] VITALS: BP 96/57; TEMP 97.3
[2024-08-17] MEDS: VANCOMYCIN HCL 1,000 MG, VIAL MATE ADAPTER 1 EACH in D5W 250 ML IV SCH (00:10)
[2024-08-17 04:00] VITALS: BP 147/76; TEMP 97.5; O2SAT 97
[2024-08-17 06:53] LABS: BASO # 0.1 10^3/uL (0.0-0.2); BASO % 0.4 % (0.0-1.0); EOS # 0.1 10^3/uL (0.0-0.5); EOS % 0.5 % (0.0-3.0); HEMOGLOBIN 12.6 g/dl (13.5-17.5); LYMPH # 1.4 10^3/uL (1.5-5.0); LYMPH % 6.3 % (24.0-44.0); MEAN CORPUSCULAR HEMOGLOBIN 28.6 pg (27.0-33.0); MEAN CORPUSCULAR HGB CONC 34.1 g/dl (32.0-36.5); MEAN CORPUSCULAR VOLUME 83.9 fl (80.0-96.0); MONO # 1.3 10^3/uL (0.0-0.8); MONO % 5.8 % (2.0-8.0); NEUTROPHILS % 86.3 % (36.0-66.0); PLATELET COUNT, AUTOMATED 446 10^3/uL (150-450); RED BLOOD COUNT 4.41 10^6/uL (4.30-6.10); WHITE BLOOD COUNT 22.1 10^3/uL (4.0-10.0)
[2024-08-17 07:15] LABS: BLOOD UREA NITROGEN 9 MG/DL (9-23); CALCIUM LEVEL 8.4 MG/DL (8.3-10.6); CARBON DIOXIDE LEVEL 23 MMOL/L (20-31); CHLORIDE LEVEL 109 MMOL/L (98-107); CREATININE FOR GFR 0.69 MG/DL (0.70-1.30); GLOMERULAR FILTRATION RATE > 60.0 (>42); GLUCOSE, FASTING 117 MG/DL (74-106); MAGNESIUM LEVEL 1.8 MG/DL (1.8-2.4); POTASSIUM SERUM 3.2 MMOL/L (3.5-5.1); SODIUM LEVEL 140 MMOL/L (136-145)
[2024-08-17 08:37] VITALS: BP 140/77
[2024-08-17] MEDS: ENOXAPARIN 40MG/0.4ML SYRINGE (J1650 PER 10MG) SC SCH (08:38)
[2024-08-17] MEDS: VENLAFAXINE **XR** 75MG CAPSULE PO SCH (08:38)
[2024-08-17] MEDS: lisinopriL 40MG TAB PO SCH (08:39)
[2024-08-17] MEDS ORDERED: hydroCHLOROthiazide 12.5 MG CAPSULE PO SCH (09:00)
[2024-08-17 12:00] VITALS: BP 133/73; TEMP 97.9; O2SAT 98
[2024-08-17] MEDS: POTASSIUM CHLORIDE 10MEQ SR TABLET PO ONE (13:17)
[2024-08-17 19:52] VITALS: BP 154/81; TEMP 97.7; O2SAT 98
[2024-08-17] MEDS: ALPRAZolam 0.5 MG TAB PO PRN (20:26)
[2024-08-17] MEDS: AUGMENTIN 875 MG TAB PO SCH (20:27)
[2024-08-18 03:42] VITALS: BP 149/68; TEMP 97.5; O2SAT 100
[2024-08-18 07:01] LABS: BASO # 0.1 10^3/uL (0.0-0.2); BASO % 0.4 % (0.0-1.0); EOS # 0.2 10^3/uL (0.0-0.5); EOS % 1.3 % (0.0-3.0); HEMATOCRIT 40.4 % (42.0-52.0); HEMOGLOBIN 13.1 g/dl (13.5-17.5); LYMPH # 2.1 10^3/uL (1.5-5.0); MEAN CORPUSCULAR HEMOGLOBIN 27.6 pg (27.0-33.0); MEAN CORPUSCULAR HGB CONC 32.4 g/dl (32.0-36.5); MEAN CORPUSCULAR VOLUME 85.1 fl (80.0-96.0); MONO % 7.4 % (2.0-8.0); NEUTROPHILS % 74.5 % (36.0-66.0); PLATELET COUNT, AUTOMATED 479 10^3/uL (150-450); RED BLOOD COUNT 4.75 10^6/uL (4.30-6.10); WHITE BLOOD COUNT 13.4 10^3/uL (4.0-10.0)
[2024-08-18 07:19] LABS: BLOOD UREA NITROGEN 9 MG/DL (9-23); CALCIUM LEVEL 8.7 MG/DL (8.3-10.6); CARBON DIOXIDE LEVEL 24 MMOL/L (20-31); CHLORIDE LEVEL 110 MMOL/L (98-107); CREATININE FOR GFR 0.62 MG/DL (0.70-1.30); GLOMERULAR FILTRATION RATE > 60.0 (>42); GLUCOSE, FASTING 117 MG/DL (74-106); POTASSIUM SERUM 3.4 MMOL/L (3.5-5.1); SODIUM LEVEL 141 MMOL/L (136-145)
[2024-08-18 08:51] VITALS: BP 157/85
[2024-08-18] MEDS: POTASSIUM CHLORIDE 10MEQ SR TABLET PO ONE (08:51)
[2024-08-18] MEDS ORDERED: PROC1CRE5 TOP (10:59)
[2024-08-18] MEDS ORDERED: AMOX875T2 PO (10:59)
[2024-08-18] MEDS ORDERED: VANI1CRE5 TOP (10:59)
[2024-08-18] MEDS ORDERED: CVS1CAP2 PO (11:02)
[2024-08-18 12:00] VITALS: BP 158/93; TEMP 97.2; O2SAT 98
== END 2024-08-18 12:25 | disposition home or self-care (01) | DRG 596 ==
LOC: M ED 10:55 → M ED INP 15:30 → M MS5PR 18:00
PROVIDERS: ADMIT Student in an Organized Health Care Education/Training Program; ATTEND Student in an Organized Health Care Education/Training Program
DX: L40.9 Psoriasis, unspecified (principal); L03.116 Cellulitis of left lower limb; I10 Essential (primary) hypertension; I16.0 Hypertensive urgency; E78.5 Hyperlipidemia, unspecified; D47.3 Essential (hemorrhagic) thrombocythemia; F43.10 Post-traumatic stress disorder, unspecified; R00.0 Tachycardia, unspecified; E87.6 Hypokalemia; F41.9 Anxiety disorder, unspecified; Z79.899 Other long term (current) drug therapy; M19.90 Unspecified osteoarthritis, unspecified site